=== PATIENT | male | born 1970 | race Caucasian/White ===

== ENCOUNTER 2018-05-31 15:53 | Emergency (ER) | payer SELFPAY ==
[2018-05-31 16:01] VITALS: BMI 29.8
[2018-05-31 16:56] LABS: BASO % 0.3 % (0-2.0); HEMATOCRIT 40.9 % (35.4-49); HEMOGLOBIN 14.1 GM/dL (11.7-16.9); LYMPH % 17.4 % (8-40); MCH 29.9 pg (25.7-33.7); MCHC 34.4 g/dl (32.0-35.9); MEAN CELL VOLUME 86.9 fl (80-96); MEAN PLT VOLUME 7.6 fl (7.5-11.1); MONO % 6.9 % (3.8-10.2); NEUT % 75.4 % (42.8-82.8); PLATELET COUNT 293 K/MM3 (134-434); RDW 13.4 % (11.9-15.9); URINE APPEARANCE CLOUDY; URINE BILIRUBIN NEGATIVE (<2.0 mg/dL); URINE COLOR YELLOW; URINE GLUCOSE (UA) NEGATIVE (NEGATIVE); URINE KETONE 1+ (NEGATIVE); URINE LEUK ESTERASE NEGATIVE (NEGATIVE); URINE NITRITE NEGATIVE (NEGATIVE); URINE UROBILINOGEN NEGATIVE mg/dL (0.2-1.0); WHITE BLOOD COUNT 9.1 K/mm3 (4.0-10.0)
[2018-05-31 17:03] LABS: URINE PROTEIN 1+ (NEGATIVE)
[2018-05-31 17:05] LABS: URINE MUCUS RARE
[2018-05-31 17:29] LABS: ALBUMIN 4.2 g/dl (3.4-5.0); ALK PHOS 90 U/L (45-117); ANION GAP 6 MMOL/L (8-16); BILIRUBIN,TOTAL 0.5 mg/dL (0.2-1); BLOOD UREA NITROGEN 16 mg/dL (7-18); CALCIUM 8.8 mg/dL (8.5-10.1); CHLORIDE 108 mmol/L (98-107); CO2 25 mmol/L (21-32); CREATININE 1.1 mg/dL (0.55-1.3); GLUCOSE,RANDOM 97 mg/dL (74-106); LIPASE 86 U/L (73-393); SGOT/AST 29 U/L (15-37); SGPT/ALT 36 U/L (13-61); SODIUM 139 mmol/L (136-145); TOT PROT 8.6 g/dl (6.4-8.2)
--- NOTE | 2018-05-31 17:35 | PDOC ---
History of Present Illness - General Chief Complaint: Pain, Acute Stated Complaint: FEVER, PAIN Time Seen by Provider: 05/31/18 16:06 History Source: Patient Exam Limitations: No Limitations - History of Present Illness Initial Comments: 05/31/18 17:34 Mr. Quevedo is a 48 yo M with a hx of HTN and HLD presents to the emergency department with left flank pain that began this morning. Past History - Past Medical History Allergies/Adverse Reactions: Allergies Allergy/AdvReac Type Severity Reaction Status Date / Time No Known Allergies Allergy Verified 05/31/18 15:57 Home Medications: Ambulatory Orders NK [No Known Home Medication] 05/31/18 COPD: No - Suicide/Smoking/Psychosocial Hx Smoking History: Never smoked Hx Alcohol Use: No Drug/Substance Use Hx: No *Physical Exam - Vital Signs Last Vital Signs Temp Pulse Resp BP Pulse Ox 98.9 F 91 H 16 118/83 99 05/31/18 15:58 05/31/18 15:58 05/31/18 15:58 05/31/18 15:58 05/31/18 15:58 ED Treatment Course - LABORATORY CBC & Chemistry Diagram: 05/31/18 16:45 05/31/18 16:45 - ADDITIONAL ORDERS Additional order review: Laboratory Results 05/31/18 05/31/18 16:45 16:45 Sodium 139 Potassium 4.0 Chloride 108 H Carbon Dioxide 25 Anion Gap 6 L BUN 16 Creatinine 1.1 Creat Clearance w eGFR > 60 Random Glucose 97 Calcium 8.8 Total Bilirubin 0.5 AST 29 ALT 36 Alkaline Phosphatase 90 Total Protein 8.6 H Albumin 4.2 Lipase 86 Urine Color Yellow Urine Appearance Cloudy Urine pH 5.0 Ur Specific [place] 1.020 Urine Protein 1+ H Urine Glucose (UA) Negative Urine Ketones 1+ H Urine Blood 3+ H Urine Nitrite Negative Urine Bilirubin Negative Urine Urobilinogen Negative Ur Leukocyte Esterase Negative Urine WBC (Auto) 9 Urine RBC (Auto) 437 Urine Mucus Rare 05/31/18 16:45 RBC 4.70 MCV 86.9 MCHC 34.4 RDW 13.4 MPV 7.6 Neutrophils % 75.4 Lymphocytes % 17.4 Monocytes % 6.9 Eosinophils % 0.0 Basophils % 0.3 - RADIOLOGY Radiology Studies Ordered: Category Date Time Status SPIRAL- RENAL-STONE CT [CT] Stat CT Scan 05/31/18 16:33 Ordered *DC/Admit/Observation/Transfer Diagnosis at time of Disposition: Nephrolithiasis - Discharge Dispostion Disposition: HOME Decision to Admit order: No - Referrals Referrals: Danilo Gann MD [Staff Physician] - García Bean MD [Staff Physician] - - Patient Instructions Printed Discharge Instructions: DI for Kidney Stones Additional Instructions: You have been seen in the emergency department for left flank pain. Your urine indicates blood in the urine, but no infection. Your labs were within normal limits. Your CT showed mild to moderate degree left sided hydroureteronephrosis secondary to a 4 mm ureteronephrolithiasis in the left distal ureter is proximal to the UVJ. We are referring you to Dr. Gann who is a primary medical doctor. Please see them within 24-36 hours. In addition, please see the urologist referred to you. If your symptoms worsen or new concerning symptoms develop such as fever, chills, and increased pain, please return to the emergency department. Thank you. Le philip visto en el departamento de emergencias por dolor en el flanco christopher. Quintero orina indica huber en la orina, maria elena no infeccin. Tus laboratorios estaban dentro de los lmites normales. Quintero TC mostr vane hidroureteronefrosis de lado christopher de kadi leve a moderado secundaria a vane ureteronefrolitiasis de 4 mm en el urter distal christopher, que es proximal a la UVJ. Le remitimos al Dr. Gann, que es un mdico primario. Por favor, valos dentro de las 24-36 horas. Adems, consulte al urlogo que se le refiere. Si brina sntomas empeoran o aparecen nuevos sntomas relacionados con la fiebre, escalofros y aumento del dolor, regrese al departamento de emergencias. Jacob. - Post Discharge Activity
[2018-05-31] MEDS ORDERED: SODIUM CHLORIDE 1,000 ML IV STA (17:42)
--- NOTE | 2018-05-31 17:42 | PDOC ---
Attending Attestation - Resident Resident Name: Stone Nicholson - ED Attending Attestation I have performed the following: I have examined & evaluated the patient, The case was reviewed & discussed with the resident, I agree w/resident's findings & plan, Exceptions are as noted - HPI HPI: 05/31/18 17:37 The patient is a 48 year old male, with a significant PMH of hypertension, hyperlipidemia, who presents to the emergency department with one day of intermittent left flank pain. The patient states the pain is a sharp pain, rated 10/10, non radiating, with associated symptoms of dysuria and slight hematuria upon urination this morning. The patient states for the past week he has had subjective fevers, chills, headache, nausea and diarrhea (non bloody) which resolved on its own two days ago. The patient denies any recent injuries or trauma. Denies any recent rashes. Denies any history of UTI or kidney stones. The patient denies chest pain, palpitations, shortness of breath and dizziness. Denies vomit, constipation, urinary frequency or urgency. Allergies: NKA - Physicial Exam PE: 05/31/18 17:38 "GENERAL: Awake, alert, and fully oriented, in no acute distress. HEAD: No signs of trauma EYES: PERRLA, EOMI, sclera anicteric, conjunctiva clear ENT: Auricles normal inspection, hearing grossly normal, nares patent, oropharynx clear without exudates. Moist mucosa NECK: Nontender, no stepoffs, Normal ROM, supple, no lymphadenopathy, JVD, or masses LUNGS: Breath sounds equal, clear to auscultation bilaterally. No wheezes, and no crackles HEART: Regular rate and rhythm, normal S1 and S2, no murmurs, rubs or gallops ABDOMEN: + L CVAT, + epigastric TTP EXTREMITIES: Normal range of motion, no edema. No clubbing or cyanosis. No cords, erythema, or tenderness NEUROLOGICAL: Cranial nerves II through XII intact. 5/5 strength and sensation in all extremities, Normal speech, normal gait, normal cerebellar function SKIN: Warm, Dry, normal turgor, no rashes or lesions noted." - Medical Decision Making 05/31/18 17:41 48 M with L flank pain and dysuria. Possible kidney stone. Pt with epigastric TTP on exam and L CVAT. - Labs, lipase - UA, UCx - CTAP noncon - IVF 05/31/18 18:59 CT shows 4mm distal ureteral stone Pt reassessed - pain well controlled. Pt is well appearing, with normal vitals. Clinically stable for DC at this time. I discussed the physical exam findings, ancillary test results and final diagnoses with the patient. I answered all of the patient's questions. The patient was satisfied with the care received and felt comfortable with the discharge plan and treatment plan. The patient agrees to follow up with the primary care physician within 24-72 hours. <Tra aCnada - Last Filed: 05/31/18 19:00> Attestations - Attestations 05/31/18 17:48 Documentation prepared by Scar Bojorquez, acting as medical oncologist for Tra Canada MD. <Scar Bojorquez - Last Filed: 05/31/18 17:48>
[2018-05-31] MEDS ORDERED: KETOROLAC TROMETHAMINE 30 MG/1 ML VIAL IVPUSH ONE (18:28)
[2018-05-31] MEDS ORDERED: KETOROLAC TROMETHAMINE 15 MG/ML VIAL ONE (19:06)
[2018-05-31 19:24] VITALS: BP 147/80; PULSE 62; TEMP 99.2
== END 2018-05-31 19:15 | disposition home or self-care (01) ==
LOC: JER 15:53
PROC: 3E0337Z Introduction of Electrolytic and Water Balance Substance into Peripheral Vein, Percutaneous Approach (ICD-10-PCS; principal; 2018-05-31)
PROC: 3E0333Z Introduction of Anti-inflammatory into Peripheral Vein, Percutaneous Approach (ICD-10-PCS; 2018-05-31)
DX: N13.2 Hydronephrosis with renal and ureteral calculous obstruction (principal)
CPT/HCPCS: 36415; 74176; 80053; 81003; 81015; 83690; 85025; 87086; 99283-25; J7030